=== PATIENT | male | born 1970 | race Caucasian/White ===

== ENCOUNTER 2019-04-08 12:28 | Emergency (ER) | payer OTHER, SELFPAY ==
[2019-04-08 13:16] VITALS: BP 148/84; PULSE 89; RESP 16; TEMP 36.7; O2SAT 100
--- NOTE | 2019-04-08 13:20 | DI.RAD.S_ITS ---
PROCEDURE: XR HAND LT MIN 3V INDICATIONS: 4 days injury, worsening. TECHNIQUE: 3 views of the hand(s) acquired. COMPARISON: None. FINDINGS: Bones: No acute fractures or dislocations. Amputation of the mid/distal aspect of the 3rd digit has been performed. Carpal bones are normally aligned. No suspicious bony lesions. Soft tissues: No suspicious soft tissue calcifications. IMPRESSION: No acute fracture. No osseous lesion. If symptoms and/or clinical suspicion for pathology persist, further assessment with repeat, or advanced imaging (e.g., CT, MRI, or bone scan) may be helpful for further assessment. Dictated by: Navdeep Herron M.D. on 04/08/2019 at 13:50 Approved by: Navdeep Herron M.D. on 04/08/2019 at 13:51
--- NOTE | 2019-04-08 14:56 | ED_ITS ---
HPI - Extremity Injury (Upper) General Chief Complaint: Extremity Injury, Upper Stated Complaint: LEFT HAND THUMB INJURY Time Seen by Provider: 04/08/19 14:52 Source: patient Mode of arrival: Ambulatory Limitations: no limitations History of Present Illness HPI narrative: This generally healthy left handed 49-year-old male was doing some remodeling work when he punctured his left thumb on Sunday. He also accidentally caught under a cinder block as well while working. He states that he thinks the puncture was with a staple, the tip of his thumb was not covered. He thought he might have a sliver there, soaked the thumb, has not seen any foreign body, but has had worsening swelling since then. He states that pain is getting worse as well. He noticed redness and swelling and states he took a sterilized needle to the puncture area over the weekend and did drain some pus, but has continued to swell. He states the pain now radiates down into the thumb and even a little bit into the side of his pointer finger, not into the forearm or wrist. He states that he has difficulty moving the tip of the thumb due to the swelling, but does not feel like there is any weakness. He denies any other injury. States he had a tetanus vaccine last summer. Related Data Previous Rx's Medication Instructions Recorded clindamycin HCl 300 mg PO QID #40 cap 04/08/19 levofloxacin [Levaquin] 500 mg PO Q24H #10 tab 04/08/19 oxycodone-acetaminophen [Percocet] 1 tab PO Q4-6H PRN #10 tab 04/08/19 Allergies Allergy/AdvReac Type Severity Reaction Status Date / Time No Known Drug Allergies Allergy Verified 11/03/18 09:25 Review of Systems Review of Systems ROS Unobtainable: All systems reviewed & are unremarkable except as noted in HPI and below Patient History Medical History (Updated 04/08/19 @ 19:42 by Juliana Reyes PA-C) No chronic problems (Chronic) Surgical History Status post amputation of extremity Status post hernia repair Family History (Updated 02/25/15 @ 00:00 by Conversion Provider) Mother Arthritis Social History Smoking Status: Former smoker Smoking Status: Former smoker alcohol intake frequency: other Substance Use Type: does not use Exam Narrative Exam Narrative: GENERAL APPEARANCE: Patient sitting comfortably, in no distress. LUNGS: Clear to auscultation bilaterally. HEART: Rate and rhythm regular without murmur, normal S1 and S2, no S3 or S4. DERMATOLOGIC: Left thumb is erythematous from the DIP distal over the pad, slightly warm to touch, non circumferential. There is a small puncture wound centrally over the pad that is not open. Fluctuance to palpation underlying the erythema which is exquisitely tender MUSCULOSKELETAL: Left thumb moderate tenderness throughout, exquisitely at the thumb pad and distal to the DIP. Full range of motion at metacarpal joint. Strength is intact against resistance in all gaines proximal/distal NEUROVASCULAR: Left thumb is warm and pink with brisk cap refill, sensation grossly intact Initial Vital Signs Initial Vital Signs: Vital Signs Temperature 98.0 F 04/08/19 13:16 Pulse Rate 89 04/08/19 13:16 Respiratory Rate 16 04/08/19 13:16 Blood Pressure 148/84 H 04/08/19 13:16 Pulse Oximetry 100 04/08/19 13:16 Procedures Abscess I/D I&D #1: Site: hand (thumb) Side (if applicable): left Local Anesthetic: lidocaine 1% and bupivacaine 0.5% Amount of anesthesia used (mL): 10 Technique: other (incised with #15 blade, explored with hemostat, small amount of pus drained from 2 pockets, unable to express additional. Culture sent) Irrigation: Yes Packing used?: none Course Course Additional Information: Patient did not have sufficient anesthesia with digital block/plain lidocaine. Reviewed findings with attending physician Dr. Perera, who evaluated patient as well and advised Marcaine, which was effective. A small amount of pus was drained, and culture was sent. She advised f/u for recheck tomorrow as well as double coverage with Clindamycin and Levaquin. I have advised patient and his that these infections are frequently deep, if in the pulp space and not improving may require further surgical intervention. Advised return to ED if acutely worsening pain, swelling, redness, new fever, he and his are agreeable. I did speak with office mgr. at [facility] and they will be able to see patient tomorrow morning for follow-up as he does not have a current PCP. Advised patient this should also be rechecked in a few days when culture is back. He is agreeable. Notes faxed Orders Ordered: ED Orders 04/08/19 13:20 XR hand LT min 3V Stat Discontinued Medications Bacitracin (Bacitracin) 1 applic TOP NOW ONE Stop: 04/08/19 18:16 Last Admin: 04/08/19 18:18 Dose: 1 applic Documented by: MOOKIE Bupivacaine HCl (Sensorcaine 0.5%) 5 ml SUBCUT NOW ONE Stop: 04/08/19 16:42 Last Admin: 04/08/19 17:08 Dose: 5 ml Documented by: GERALD Ketorolac Tromethamine (Toradol) 60 mg IM NOW ONE Stop: 04/08/19 16:42 Last Admin: 04/08/19 16:51 Dose: 60 mg Documented by: GERALD Lidocaine HCl (Xylocaine 1%) 6 ml SUBCUT NOW ONE Stop: 04/08/19 15:13 Last Admin: 04/08/19 16:22 Dose: 6 ml Documented by: MOOKIE Oxycodone/Acetaminophen (Percocet 5/325) 1 tab PO NOW ONE Stop: 04/08/19 16:42 Last Admin: 04/08/19 16:52 Dose: 1 tab Documented by: GERALD Vital Signs Vital signs: Vital Signs - 8 hr 04/08/19 13:16 04/08/19 17:24 Temperature 98.0 F Pulse Rate 89 99 H Respiratory Rate 16 18 Blood Pressure 148/84 H Blood Pressure [Right Arm] 120/91 H Pulse Oximetry 100 97 Discharge Plan Departure Patient Disposition: Home Clinical Impression: Cellulitis and abscess of finger, unspecified Discharge Date/Time: 04/08/19 18:44 Instructions: DI for Cellulitis -- Adult, DI for Skin Abscess Activity Restrictions/Additional Instructions: As we talked about, you should return to the emergency department if you have new symptoms such as weakness, numbness, abrupt increase in pain, swelling, redness, new fever, etc. start the antibiotics as soon as you pick them up. You have a prescription for a little bit of pain medicine, Percocet, if you needed, but remember not to drive as that can make you sleepy. I have also sent in a prescription strength anti-inflammatory pain reliever (naproxen), so please take this every 12 hours. Please warm soak the thumb a few times daily, pat dry. Keep a dressing on when up and about, if you are resting you can leave it open to air for a bit. Please follow-up at [facility], [address], at 9 a.m. tomorrow morning (they will give you new patient paperwork and work you in, Enriqueta is the medical information officer and knows about you). This needs to be recheck tomorrow and also in a few days to see your response to antibiotics. The cultures should be back at the end of the week. For future reference, the anesthetic that you had today that worked for you was Marcaine. Lidocaine was the one that was ineffective Prescriptions: New clindamycin HCl 300 mg capsule 300 mg PO QID Qty: 40 RF: 0 levofloxacin [Levaquin] 500 mg tablet 500 mg PO Q24H Qty: 10 RF: 0 oxycodone-acetaminophen [Percocet] 5-325 mg tablet 1 tab PO Q4-6H PRN (Reason: acute thumb pain/abcess) Qty: 10 RF: 0 Referrals: [facility] [Provider Group]
--- NOTE | 2019-04-08 15:15 | PC.NURSE ---
pt states, home remodeling, finger crushed on blocks 4 days ago, trying to remove a splinter ,then thumb with increase in swelling and pain with movement. denies fever or vomiting, tetanus up to date per pt.
[2019-04-08] MEDS: LIDOCAINE 1% 20 ML 6 ML SUBCUT (16:22)
[2019-04-08] MEDS: KETOROLAC 60 MG/2 ML VIAL IM (16:51)
[2019-04-08] MEDS: OXYCODONE/ACETAMINOPHEN 5/325 TABLET 1 TAB PO (16:52)
[2019-04-08] MEDS: BUPIVACAINE 0.5% MDV 5 ML SUBCUT (17:08)
[2019-04-08 17:24] VITALS: BP 120/91; PULSE 99; RESP 18; O2SAT 97
[2019-04-08] MEDS: BACITRACIN OINT 0.9 GM PCKT 1 APPLIC TOP (18:18)
--- NOTE | 2019-04-08 18:25 | PC.NURSE ---
bacitracin ointment applied, with 2x2 with kerlix. distal cms intact post applications. reviewed s/sxs of infections, rtr prn, ice pack and elevation for comfort. verbal understanding plan of care.
== END 2019-04-08 18:44 | disposition home or self-care (01) ==
PROVIDERS: Emergency Provider Internal Medicine; Family Provider Family Medicine; PCP Family Medicine
DX: L02.512 Cutaneous abscess of left hand (principal); L03.012 Cellulitis of left finger; W26.9XXA Contact with unspecified sharp object(s), initial encounter; Y93.H3 Activity, building and construction
CPT/HCPCS: 10060; 73130; 87070; 87075; 87077; 87147; 87186; 87205; 96372; 99282; 99283; J1885

== ENCOUNTER → 2019-04-10 14:19 | Outpatient (ROUT) | payer OTHER, SELFPAY | PROVIDERS: Family Provider Family Medicine; PCP Family Medicine; Visit Provider Internal Medicine | DX: L03.114 Cellulitis of left upper limb (principal) | CPT/HCPCS: 87070; 87077; 87147; 87186; 87205 ==

== ENCOUNTER → 2019-04-22 06:03 | Outpatient (CLI) | payer OTHER, SELFPAY ==
--- NOTE | 2019-04-22 | DI.MRI.S_ITS ---
PROCEDURE: MR HAND LT WO/W CON INDICATIONS: Left thumb Pain TECHNIQUE: Noncontrast coronal T1 spin echo and T2 fast spin echo with fat saturation, axial proton density fast spin echo and T2 fast spin echo with fat saturation, axial T1 spin echo with fat saturation, sagittal T1 spin echo and STIR through the hand and fingers. Post-contrast axial, coronal, and sagittal T1 spin echo through the hand and fingers. COMPARISON: None. FINDINGS: Image quality: Excellent. No fracture identified. There is diffuse subcutaneous edema about the thumb at the level of the distal and proximal phalanges. There is associated mild reactive enhancement At the thumb interphalangeal joint, the radial and ulnar collateral ligaments appear intact. At the first MCP joint, the radial collateral ligament appears intact. There is thickening and partially discontinuous appearance of the distal ulnar collateral ligament suggestive of sprain/partial rupture however probably chronic. Flexor and extensor tendon slips appear intact. No suspicious enhancement or no abscess identified. First CMC and triscaphe joint degeneration IMPRESSION: Diffuse subcutaneous edema and cellulitis involving the distal thumb as detailed above. No abscess seen. No specific evidence of osteomyelitis Possible sprain/partial rupture of the first MCP ulnar collateral ligament although technically age indeterminate (suspect chronic however given the absence of adjacent soft tissue edema) Dictated by: Amrit Payton M.D. on 04/22/2019 at 17:24 Approved by: Amrit Payton M.D. on 04/22/2019 at 17:30
== END ==
PROVIDERS: PCP Internal Medicine; Visit Provider Internal Medicine
DX: M79.642 Pain in left hand (principal); L03.012 Cellulitis of left finger; M18.12 Unilateral primary osteoarthritis of first carpometacarpal joint, left hand
CPT/HCPCS: 73220